=== PATIENT | male | born 1960 ===

== ENCOUNTER 2017-07-04 09:08 | Inpatient (IN) | payer OTHER ==
[2017-07-04 09:30] VITALS: BMI 26.6
--- NOTE | 2017-07-04 09:50 | ED PDOC ---
HPI: Abdomen Time Seen by Provider: 07/04/17 09:30 Chief Complaint (Nursing): Abdominal Pain History Per: Patient (Right sided abd pain intermittent x 1 month assoc with diarrhea. denies fever, vomiting or bloody stool.) Onset/Duration Of Symptoms: Other (1 month) Current Symptoms Are (Timing): Intermittent Episodes Severity: Mild Pain Scale Rating Of: 2 Location Of Pain/Discomfort: RUQ, RLQ Quality Of Discomfort: Unable To Describe Associated Symptoms: Diarrhea. denies: Fever, Nausea, Vomiting Past Medical History Vital Signs: Last Vital Signs Temp 97 F L 07/04/17 09:33 Pulse 65 07/04/17 11:59 Resp 19 07/04/17 11:59 BP 145/80 07/04/17 11:59 Pulse Ox 98 07/04/17 12:53 - Medical History PMH: No Chronic Diseases - Family History Family History: States: Unknown Family Hx - Allergies Allergies/Adverse Reactions: Allergies Allergy/AdvReac Type Severity Reaction Status Date / Time Penicillins Allergy RASH Verified 07/04/17 09:32 Review of Systems ROS Statement: Except As Marked, All Systems Reviewed And Found Negative Constitutional: Negative for: Fever Gastrointestinal: Positive for: Abdominal Pain, Diarrhea. Negative for: Nausea , Vomiting, Melena, Hematochezia, Hematemesis Physical Exam - Reviewed Nursing Documentation Reviewed: Yes Vital Signs Reviewed: Yes - Physical Exam Appears: Positive for: Non-toxic, No Acute Distress Head Exam: Positive for: ATRAUMATIC, NORMAL INSPECTION, NORMOCEPHALIC Skin: Positive for: Normal Color, Warm, DRY Eye Exam: Positive for: EOMI, Normal appearance, PERRL ENT: Positive for: Normal ENT Inspection Neck: Positive for: Normal, Painless ROM Cardiovascular/Chest: Positive for: Regular Rate, Rhythm Respiratory: Positive for: CNT, Normal Breath Sounds Gastrointestinal/Abdominal: Positive for: Bowel Sounds, Soft, Tenderness (RUQ and RLQ) Back: Positive for: Normal Inspection Extremity: Positive for: Normal ROM Neurologic/Psych: Positive for: Alert, Oriented - Laboratory Results Result Diagrams: 07/04/17 09:55 07/04/17 09:55 - ECG O2 Sat by Pulse Oximetry: 98 ED OBSERVATION Date of observation admission: 07/04/17 Time of observation admission: 10:30 - Observation admission statement Patient is being placed in observation because:: abd pain Disposition - Clinical Impression Clinical Impression: Abdominal pain - Patient ED Disposition Is Patient to be Admitted: Yes - Disposition Disposition Time: 14:38 Condition: FAIR - Pt Status Changed To: Hospital Disposition Of: Observation - POA Present On Arrival: None
[2017-07-04 10:07] LABS: BASO # 0.1 K/uL (0.0-0.2); BASO % 1.4 % (0.0-2.0); EOS # 0.3 K/uL (0.0-0.7); EOS % 6.6 % (0.0-4.0); HEMATOCRIT 38.1 % (35.0-51.0); LYMPH # 0.9 K/uL (1.0-4.3); LYMPH % 17.6 % (20.0-40.0); MEAN CELL VOLUME 90.3 fl (80.0-94.0); MEAN CORPUSCULAR HEMOGLOBIN 29.6 pg (27.0-31.0); MEAN CORPUSCULAR HGB CONC 32.7 g/dL (33.0-37.0); MEAN PLATELET VOLUME 7.7 fl (7.2-11.7); MONO # 0.4 K/uL (0.0-0.8); MONO % 7.2 % (0.0-10.0); NEUT # 3.4 K/uL (1.8-7.0); NEUT % 67.2 % (50.0-75.0); RED CELL DISTRIBUTION WIDTH 14.1 % (11.5-14.5); WHITE BLOOD COUNT 5.1 K/uL (4.8-10.8)
[2017-07-04 10:15] LABS: ALB/GLOB RATIO 1.1 (1.0-2.1); ALKALINE PHOSPHATASE 81 U/L (38-126); ALT/SGPT 16 U/L (21-72); AST/SGOT 32 U/L (17-59); BILIRUBIN,TOTAL 0.8 mg/dl (0.2-1.3); BLOOD UREA NITROGEN 11 mg/dl (9-20); CALCIUM 8.7 mg/dL (8.4-10.2); CARBON DIOXIDE 22 mmol/L (22-30); CHLORIDE 105 mmol/L (98-107); GFR AFRICAN-AMERICAN > 60; GLUCOSE,RANDOM 122 mg/dL (75-110); SODIUM 138 mmol/l (132-148); TOTAL PROTEIN 7.7 G/DL (6.3-8.2)
[2017-07-04 10:16] LABS: POTASSIUM 4.4 MMOL/L (3.6-5.0)
[2017-07-04] MEDS ORDERED: Iohexol 300 100 ML IJ ONE (11:00)
[2017-07-04] MEDS ORDERED: Sodium Chloride 0.9% 50 ML IV ONE (11:01)
--- NOTE | 2017-07-04 11:41 | CT ---
PROCEDURE: CT Abdomen and Pelvis with contrast HISTORY: Lower abd pain right side COMPARISON: None. TECHNIQUE: Contrast dose: Omnipaque 300, 95 cc Radiation dose: Total exam DLP = 934 mGy-cm. This CT exam was performed using one or more of the following dose reduction techniques: Automated exposure control, adjustment of the mA and/or kV according to patient size, and/or use of iterative reconstruction technique. FINDINGS: LOWER THORAX: Unremarkable. LIVER: Unremarkable. No gross lesion or ductal dilatation. GALLBLADDER AND BILE DUCTS: Unremarkable. PANCREAS: Unremarkable. No gross lesion or ductal dilatation. SPLEEN: Unremarkable. ADRENALS: Unremarkable. No mass. KIDNEYS AND URETERS: A 1 cm cyst is seen exophytic off the midpole left kidney laterally with a tiny lucency seen related to the mid to lower pole right kidney anteriorly, too small to characterize. No obstructive uropathy identified bilaterally. No definite radiodense urolithiasis. VASCULATURE: Unremarkable. No aortic aneurysm. BOWEL: No bowel obstruction appreciated and variable but predominate moderate fecal loading obscures the colon. Further, lack of oral contrast limits evaluation of bowel. APPENDIX: The appendix appears somewhat prominent measuring 8.7 cm with questionable fluid sequestered at the distal portion. However, there is no periappendiceal reaction. There is borderline mural thickening. The pattern suspicious but not definitive for appendicitis. Further clinical correlation is advised. PERITONEUM: Unremarkable. No free fluid. No free air. LYMPH NODES: Unremarkable. No enlarged lymph nodes. BLADDER: Unremarkable. REPRODUCTIVE: Enlarged prostate gland. BONES: No acute fracture. OTHER FINDINGS: None. IMPRESSION: Findings suspicious but not definitive for appendicitis. Please see discussion above. Remainder the examination is otherwise nonacute Left renal cyst. Tiny lucency in the right kidney too small to characterize. Enlarged prostate gland.
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
[2017-07-04] MEDS: Sodium Chloride 0.9% 1,000 ML IV SCH (16:22)
[2017-07-04] MEDS: metroNIDAZOLE 500mg/100ml NS 100 ML IVPB SCH (17:21)
[2017-07-04 17:22] LABS: RBC URINE 2 /hpf (0-3); URINE BACTERIA OCC (<OCC); URINE BILIRUBIN NEGATIVE (NEGATIVE); URINE BLOOD NEGATIVE (NEGATIVE); URINE COLOR STRAW (YELLOW); URINE GLUCOSE (UA) NEG (Normal); URINE KETONE NEGATIVE (NEGATIVE); URINE LEUKOCYTE ESTERASE NEG Leu/uL (Negative); URINE PROTEIN NEGATIVE (NEGATIVE); URINE UROBILINOGEN 0.2-1.0 mg/dL (0.2-1.0); WBC URINE < 1 /hpf (0-5)
[2017-07-04] MEDS: Ciprofloxacin 400mg/200ml D5W 400 MG/200 ML BAG IVPB SCH (21:21)
[2017-07-05] MEDS: metroNIDAZOLE 500mg/100ml NS 100 ML IVPB SCH ×2 (00:41→09:46)
[2017-07-05] MEDS: Sodium Chloride 0.9% 1,000 ML IV SCH ×2 (00:42→21:35)
[2017-07-05 07:39] LABS: BLOOD UREA NITROGEN 8 mg/dl (9-20); CALCIUM 8.7 mg/dL (8.4-10.2); CARBON DIOXIDE 30 mmol/L (22-30); CHLORIDE 102 mmol/L (98-107); GFR AFRICAN-AMERICAN > 60; GLUCOSE,RANDOM 105 mg/dL (75-110); POTASSIUM 3.9 MMOL/L (3.6-5.0); SODIUM 140 mmol/l (132-148)
[2017-07-05 07:44] LABS: BASO % 0.7 % (0.0-2.0); EOS # 0.3 K/uL (0.0-0.7); EOS % 4.9 % (0.0-4.0); MEAN CELL VOLUME 90.2 fl (80.0-94.0); MEAN CORPUSCULAR HEMOGLOBIN 29.9 pg (27.0-31.0); MEAN CORPUSCULAR HGB CONC 33.1 g/dL (33.0-37.0); MEAN PLATELET VOLUME 7.8 fl (7.2-11.7); MONO # 0.4 K/uL (0.0-0.8); MONO % 6.4 % (0.0-10.0); NEUT # 4.1 K/uL (1.8-7.0); NRBC % 0.1 % (0.0-0.0); RED CELL DISTRIBUTION WIDTH 14.3 % (11.5-14.5); WHITE BLOOD COUNT 5.8 K/uL (4.8-10.8)
[2017-07-05] MEDS: Ciprofloxacin 400mg/200ml D5W 400 MG/200 ML BAG IVPB SCH ×2 (09:50→20:48)
[2017-07-05] MEDS ORDERED: metroNIDAZOLE 500mg/100ml NS 100 ML IVPB SCH (10:15)
--- NOTE | 2017-07-05 10:44 | CP.PCM.PN ---
Subjective - Date & Time of Evaluation Date of Evaluation: 07/05/17 Time of Evaluation: 10:45 - Subjective Subjective: No fever Abd Pain sl better no nausea nor vomiting denies CP no SOB Pt has good functional capacity - low cardiac risk for the procedure. Objective - Vital Signs/Intake and Output Vital Signs (last 24 hours): Temp Pulse Resp BP Pulse Ox 97.8 F 81 20 142/77 98 07/05/17 08:32 07/05/17 08:32 07/05/17 08:32 07/05/17 08:32 07/05/17 08:32 - Medications Medications: Current Medications Sodium Chloride (Sodium Chloride 0.9%) 1,000 mls @ 100 mls/hr IV .Q10H ADRYAN Last Admin: 07/05/17 00:42 Dose: 100 mls/hr Ciprofloxacin (Cipro 400mg/200ml Dsw) 400 mg in 200 mls @ 200 mls/hr IVPB Q12 ADRYAN Last Admin: 07/05/17 09:50 Dose: 200 mls/hr Metronidazole (Flagyl 500mg/100ml Ns) 100 mls @ 100 mls/hr IVPB Q8 ADRYAN Morphine Sulfate (Morphine) 2 mg IVP Q4 PRN PRN Reason: Pain, moderate (4-7) - Labs Labs: 07/05/17 06:50 07/05/17 06:50 - Constitutional Appears: Non-toxic, No Acute Distress - Head Exam Head Exam: NORMAL INSPECTION, NORMOCEPHALIC - Eye Exam Eye Exam: EOMI, Normal appearance, PERRL Pupil Exam: NORMAL ACCOMODATION - ENT Exam ENT Exam: Mucous Membranes Moist, Normal External Ear Exam - Neck Exam Neck Exam: Full ROM. absent: Meningismus - Respiratory Exam Respiratory Exam: NORMAL BREATHING PATTERN. absent: Rales, Wheezes, Respiratory Distress - Cardiovascular Exam Cardiovascular Exam: REGULAR RHYTHM, +S1, +S2 - GI/Abdominal Exam GI & Abdominal Exam: Soft, Tenderness (hypogastric tenderness) - Back Exam Back Exam: Full ROM. absent: CVA tenderness (L), CVA tenderness (R) - Neurological Exam Neurological Exam: Alert, Awake, CN II-XII Intact, Oriented x3 Neuro motor strength exam: Left Upper Extremity: 5, Right Upper Extremity: 5, Left Lower Extremity: 5, Right Lower Extremity: 5 - Psychiatric Exam Psychiatric exam: Normal Affect, Normal Mood - Skin Skin Exam: Dry, Intact, Normal Color, Warm Assessment and Plan (1) Acute appendicitis Status: Acute - Assessment and Plan (Free Text) Assessment: A/P : 1. Acute Appendicitis Pt came with lower abdominal pain. CT of abd: suspicious for Acute AP Surgery consulted - plan for Appendectomy keep pt NPO cont IV Cipro and Flagyl IVF hydration NPO Pt has low cardiac risk for the procedure - has greater than 4 mets cardiac function, works doing cleaning, exercises daily, no Cardiac nor resp history. EKG : Sinus monie 2. DVT Proph - SCD - Lovenox post op
[2017-07-05 12:27] LABS: PARTIAL THROMBOPLASTIN TIME 28.4 Seconds (25.6-37.1)
[2017-07-05] MEDS ORDERED: Lidocaine 1% Inj (20ml) ONE (14:50)
[2017-07-05] MEDS ORDERED: Bupivacaine 0.5% Inj(30mL) ONE (14:50)
[2017-07-05] MEDS ORDERED: Propofol 10 mg/ml Inj (20 ML) ONE (14:52)
[2017-07-05] MEDS ORDERED: Rocuronium 10 mg/ml (5 ml) ONE (14:52)
[2017-07-05] MEDS ORDERED: Neostigmine Methylsulfate 3mg/3ml Syringe IV ONE (14:52)
[2017-07-05] MEDS ORDERED: Succinylcholine 200 mg/10 ml Inj IV ONE (14:54)
[2017-07-05] MEDS ORDERED: Lactated Ringer's 1,000 ML IV ONE ×2 (15:10→16:23)
--- NOTE | 2017-07-05 16:39 | PCM.SURG1 ---
Surgeon's Initial Post Op Note - Surgeon's Notes Surgeon: Ronald Hardware Installer: Sebastian PGY3, Cassia PGY1 Type of Anesthesia: General Endo, Local Pre-Operative Diagnosis: appendicitis Operative Findings: 1. enlarged appendix. 2. Intra-peritoneal free body. 3. Gini-rectal inflammation Post-Operative Diagnosis: same Operation Performed: laparoscopic appendectomy Specimen/Specimens Removed: 1. appendix. 2. Intra-peritoneal free body Estimated Blood Loss: EBL {In ML}: 10 Blood Products Given: N/A Drains Used: No Drains Post-Op Condition: Good Date of Surgery/Procedure: 07/05/17 Time of Surgery/Procedure: 16:39
[2017-07-05] MEDS ORDERED: Oxycodone/Acetaminophen 5/325 mg Tab PO PRN (16:41)
[2017-07-05] MEDS: HYDROmorphone 0.5 mg/0.5 ml ISec IVP PRN ×2 (17:10→17:25)
--- NOTE | 2017-07-05 23:20 | CARD ---
APPROVED REPORT EKG Measurement Heart [id number] <Conclusion> Sinus bradycardia Otherwise normal ECG
[2017-07-06] MEDS: Lactated Ringer's 1,000 ML IV SCH ×2 (03:16→06:16)
[2017-07-06 05:29] VITALS: RESP 18; O2SAT 98
[2017-07-06 07:08] LABS: BASO % 0.4 % (0.0-2.0); EOS # 0.1 K/uL (0.0-0.7); EOS % 1.5 % (0.0-4.0); HEMATOCRIT 39.5 % (35.0-51.0); LYMPH % 15.6 % (20.0-40.0); MEAN CELL VOLUME 90.8 fl (80.0-94.0); MEAN CORPUSCULAR HEMOGLOBIN 29.4 pg (27.0-31.0); MEAN CORPUSCULAR HGB CONC 32.4 g/dL (33.0-37.0); MEAN PLATELET VOLUME 7.5 fl (7.2-11.7); MONO # 0.6 K/uL (0.0-0.8); MONO % 8.5 % (0.0-10.0); NEUT # 4.8 K/uL (1.8-7.0); RED CELL DISTRIBUTION WIDTH 14.6 % (11.5-14.5); WHITE BLOOD COUNT 6.5 K/uL (4.8-10.8)
[2017-07-06 07:18] LABS: BLOOD UREA NITROGEN 7 mg/dl (9-20); CALCIUM 8.7 mg/dL (8.4-10.2); CARBON DIOXIDE 29 mmol/L (22-30); CHLORIDE 101 mmol/L (98-107); GFR AFRICAN-AMERICAN > 60; GLUCOSE,RANDOM 102 mg/dL (75-110); POTASSIUM 3.8 MMOL/L (3.6-5.0); SODIUM 138 mmol/l (132-148)
--- NOTE | 2017-07-06 07:55 | CP.PCM.PN ---
<Morteza Antony - Last Filed: 07/06/17 12:48> Subjective - Date & Time of Evaluation Date of Evaluation: 07/06/17 Time of Evaluation: 07:30 - Subjective Subjective: General Surgery Progress Note for Dr. Cardenas Patient seen and examined at bedside this AM. No acute event overnight. He is POD #1 s/p laparoscopic appendectomy. Patient lying in bed comfortably. Patient still reports mild abdominal pain in lower abdomen. He is tolerating oral intake. No BM yet. Denies fever/chills, cp sob, palpitations, n/v/d. Objective - Vital Signs/Intake and Output Vital Signs (last 24 hours): Temp Pulse Resp BP Pulse Ox 98.3 F 71 18 114/60 98 07/06/17 05:28 07/06/17 05:28 07/06/17 05:28 07/06/17 05:28 07/06/17 05:28 - Medications Medications: Current Medications Acetaminophen (Tylenol 325mg Tab) 650 mg PO Q6 PRN PRN Reason: Fever >100.4 F Enoxaparin Sodium (Lovenox) 40 mg SC DAILY [facility] PRN Reason: Protocol Sodium Chloride (Sodium Chloride 0.9%) 1,000 mls @ 100 mls/hr IV .Q10H [facility] Last Admin: 07/05/17 21:35 Dose: Not Given Ciprofloxacin (Cipro 400mg/200ml Dsw) 400 mg in 200 mls @ 200 mls/hr IVPB Q12 [facility] Last Admin: 07/05/17 20:48 Dose: 200 mls/hr Lactated Ringer's (Lactated Ringer's) 1,000 mls @ 100 mls/hr IV .Q10H [facility] Last Admin: 07/06/17 06:16 Dose: 100 mls/hr Ketorolac Tromethamine (Toradol) 30 mg IVP Q6 PRN PRN Reason: Pain, moderate (4-7) Metronidazole (Flagyl) 500 mg PO Q8@0500,1300,2100 [facility] Last Admin: 07/06/17 06:00 Dose: 500 mg Morphine Sulfate (Morphine) 2 mg IVP Q4 PRN PRN Reason: Pain, moderate (4-7) Ondansetron HCl (Zofran Inj) 4 mg IVP Q4 PRN PRN Reason: Nausea/Vomiting Oxycodone/Acetaminophen (Percocet 5/325 Mg Tab) 1 tab PO Q4 PRN PRN Reason: Pain, severe (8-10) Stop: 07/08/17 16:42 - Labs Labs: 07/06/17 06:15 07/06/17 06:15 PT 12.3 Seconds (9.8-13.1) 07/05/17 12:12 INR 1.2 (0.9-1.2) 07/05/17 12:12 APTT 28.4 Seconds (25.6-37.1) 07/05/17 12:12 - Constitutional Appears: No Acute Distress - Head Exam Head Exam: ATRAUMATIC, NORMOCEPHALIC - Eye Exam Eye Exam: Normal appearance - ENT Exam ENT Exam: Mucous Membranes Moist - Neck Exam Neck Exam: Full ROM - Respiratory Exam Respiratory Exam: NORMAL BREATHING PATTERN - Cardiovascular Exam Cardiovascular Exam: REGULAR RHYTHM - GI/Abdominal Exam GI & Abdominal Exam: Soft, Tenderness (lower abdomen). absent: Distended, Firm , Guarding, Rigid, Rebound - Neurological Exam Neurological Exam: Alert, Awake, CN II-XII Intact, Oriented x3 - Psychiatric Exam Psychiatric exam: Normal Affect, Normal Mood - Skin Skin Exam: Dry, Intact, Normal Color, Warm Assessment and Plan - Assessment and Plan (Free Text) Plan: 56 M s/p laparoscopic appendectomy POD #1 -ABX -Anti-emetics/Analgesics -GI consult recommended -Patient will need follow up with GI for colonoscopy -Clear for discharge from surgical standpoint -Will DW Dr. Ronald Antony PGY1 <Wali Cardenas B - Last Filed: 07/06/17 19:42> Objective - Vital Signs/Intake and Output Vital Signs (last 24 hours): Temp Pulse Resp BP Pulse Ox 98.2 F 72 18 127/72 98 07/06/17 16:55 07/06/17 16:55 07/06/17 16:55 07/06/17 16:55 07/06/17 16:55 - Labs Labs: 07/06/17 06:15 07/06/17 06:15 PT 12.3 Seconds (9.8-13.1) 07/05/17 12:12 INR 1.2 (0.9-1.2) 07/05/17 12:12 APTT 28.4 Seconds (25.6-37.1) 07/05/17 12:12 Attending/Attestation - Attestation I have fully participated in the care of the patient.: Yes I have reviewed all pertinent clinical information, including history, physical exam and plan: Yes Notes (Text): 07/06/17 19:42 Pt can be DC home f/u as out pt GI f/u for colonoscopy
[2017-07-06] MEDS: Ciprofloxacin 400mg/200ml D5W 400 MG/200 ML BAG IVPB SCH (08:47)
[2017-07-06] MEDS ORDERED: Enoxaparin 40 mg Syringe SC SCH (09:00)
--- NOTE | 2017-07-06 09:24 | CP.PCM.DIS ---
Provider - Provider Date of Admission: 07/05/17 14:33 Attending physician: Spencer Carrillo MD Consults: Surgery-Dr Cardenas Time Spent in preparation of Discharge (in minutes): 25 Diagnosis - Discharge Diagnosis (1) Acute appendicitis Status: Acute (2) Perirectal inflammation Status: Acute (3) Diarrhea Status: Chronic Hospital Course - Lab Results Lab Results: Most Recent Lab Values WBC 6.5 K/uL (4.8-10.8) 07/06/17 06:15 RBC 4.36 Mil/uL (4.40-5.90) L 07/06/17 06:15 Hgb 12.8 g/dL (12.0-18.0) 07/06/17 06:15 Hct 39.5 % (35.0-51.0) 07/06/17 06:15 MCV 90.8 fl (80.0-94.0) 07/06/17 06:15 MCH 29.4 pg (27.0-31.0) 07/06/17 06:15 MCHC 32.4 g/dL (33.0-37.0) L 07/06/17 06:15 RDW 14.6 % (11.5-14.5) H 07/06/17 06:15 Plt Count 265 K/uL (130-400) 07/06/17 06:15 MPV 7.5 fl (7.2-11.7) 07/06/17 06:15 Neut % (Auto) 74.0 % (50.0-75.0) 07/06/17 06:15 Lymph % (Auto) 15.6 % (20.0-40.0) L 07/06/17 06:15 Campbell % (Auto) 8.5 % (0.0-10.0) 07/06/17 06:15 Eos % (Auto) 1.5 % (0.0-4.0) 07/06/17 06:15 Baso % (Auto) 0.4 % (0.0-2.0) 07/06/17 06:15 Neut # 4.8 K/uL (1.8-7.0) 07/06/17 06:15 Lymph # 1.0 K/uL (1.0-4.3) 07/06/17 06:15 Campbell # 0.6 K/uL (0.0-0.8) 07/06/17 06:15 Eos # 0.1 K/uL (0.0-0.7) 07/06/17 06:15 Baso # 0.0 K/uL (0.0-0.2) 07/06/17 06:15 PT 12.3 Seconds (9.8-13.1) 07/05/17 12:12 INR 1.2 (0.9-1.2) 07/05/17 12:12 APTT 28.4 Seconds (25.6-37.1) 07/05/17 12:12 Sodium 138 mmol/l (132-148) 07/06/17 06:15 Potassium 3.8 MMOL/L (3.6-5.0) 07/06/17 06:15 Chloride 101 mmol/L (98-107) 07/06/17 06:15 Carbon Dioxide 29 mmol/L (22-30) 07/06/17 06:15 Anion Gap 11 (10-20) 07/06/17 06:15 BUN 7 mg/dl (9-20) L 07/06/17 06:15 Creatinine 0.8 mg/dL (0.8-1.5) 07/06/17 06:15 Est GFR ( Amer) > 60 07/06/17 06:15 Est GFR (Non-Af Amer) > 60 07/06/17 06:15 Random Glucose 102 mg/dL (75-110) 07/06/17 06:15 Calcium 8.7 mg/dL (8.4-10.2) 07/06/17 06:15 Total Bilirubin 0.8 mg/dl (0.2-1.3) 07/04/17 09:55 AST 32 U/L (17-59) 07/04/17 09:55 ALT 16 U/L (21-72) L 07/04/17 09:55 Alkaline Phosphatase 81 U/L (38-126) 07/04/17 09:55 Total Protein 7.7 G/DL (6.3-8.2) 07/04/17 09:55 Albumin 4.0 g/dL (3.5-5.0) 07/04/17 09:55 Globulin 3.7 gm/dL (2.2-3.9) 07/04/17 09:55 Albumin/Globulin Ratio 1.1 (1.0-2.1) 07/04/17 09:55 Urine Color Straw (YELLOW) 07/04/17 17:08 Urine Clarity Clear (Clear) 07/04/17 17:08 Urine pH 7.0 (5.0-8.0) 07/04/17 17:08 Ur Specific [place] 1.025 (1.003-1.030) 07/04/17 17:08 Urine Protein Negative mg/dL (NEGATIVE) 07/04/17 17:08 Urine Glucose (UA) Neg mg/dL (Normal) 07/04/17 17:08 Urine Ketones Negative mg/dL (NEGATIVE) 07/04/17 17:08 Urine Blood Negative (NEGATIVE) 07/04/17 17:08 Urine Nitrate Negative (NEGATIVE) 07/04/17 17:08 Urine Bilirubin Negative (NEGATIVE) 07/04/17 17:08 Urine Urobilinogen 0.2-1.0 mg/dL (0.2-1.0) 07/04/17 17:08 Ur Leukocyte Esterase Neg Dina/uL (Negative) 07/04/17 17:08 Urine RBC (Auto) 2 /hpf (0-3) 07/04/17 17:08 Urine Microscopic WBC < 1 /hpf (0-5) 07/04/17 17:08 Urine Bacteria Occ (<OCC) H 07/04/17 17:08 - Hospital Course Hospital Course: 56 y/o gent came in bec of abdominal pain. He complains of abd pain and diarrhea x 1 month . Diarrhea resolved however lower abd pain worsened . CT of abd : suspicious for Appendicitis. Suirgery consulted- pt then underwent Lap AP. Noted Appendicitis and some perirectal inflammation. GI consulted- plan for outp[t Colonoscopy. Tolerated diet, + flatus. 1. Acute Appendicitis s/p Lap Appendectomy Pt came with lower abdominal pain. CT of abd: suspicious for Acute AP Surgery consulted - Lap Appendectomy cont IV Cipro and Flagyl IVF hydration 2. Perirectal Inflammation seen intra-op pt has had diarrhea on and off x 1 month GI consulted- outpt Colonoscopy 3. DVT Proph - SCD - Lovenox Discharge Exam - Head Exam Head Exam: ATRAUMATIC, NORMAL INSPECTION, NORMOCEPHALIC - Eye Exam Eye Exam: EOMI, Normal appearance, PERRL Pupil Exam: NORMAL ACCOMODATION - ENT Exam ENT Exam: Mucous Membranes Moist, Normal External Ear Exam - Neck Exam Neck exam: Full Rom - Respiratory Exam Respiratory Exam: NORMAL BREATHING PATTERN. absent: Respiratory Distress - Cardiovascular Exam Cardiovascular Exam: REGULAR RHYTHM, +S1, +S2 - GI/Abdominal Exam GI & Abdominal Exam: Normal Bowel Sounds, Soft, Tenderness (minimal diffuse tenderness) - Extremities Exam Extremities exam: full ROM, normal capillary refill, pedal pulses present Additional comments: no calf tenderness - Back Exam Back exam: FULL ROM. absent: CVA tenderness (L), CVA tenderness (R) - Neurological Exam Neurological exam: Alert, CN II-XII Intact, Normal Gait, Oriented x3, Reflexes Normal - Psychiatric Exam Psychiatric exam: Normal Affect, Normal Mood - Skin Skin Exam: Dry, Normal Color, Warm Discharge Plan - Discharge Medications Prescriptions: Ciprofloxacin [Cipro] 500 mg PO BID #10 tab Docusate Sodium [Colace] 100 mg PO BID #30 capsule metroNIDAZOLE [Flagyl] 500 mg PO Q8@0500,1300,2100 #15 tab oxyCODONE/Acetaminophen [Percocet 5/325 mg Tab] 1 tab PO Q8 PRN #15 tab PRN Reason: Pain, Severe (8-10) - Follow Up Plan Condition: GOOD Disposition: HOME/ ROUTINE Instructions: Laparoscopic Appendectomy (DC) Additional Instructions: You may remove dressings tomorrow and you may shower. No soaking in bath tub or swimming pool. Make an appt to see Dr. Cardenas in office in 1 week for post-op visit. Make an appt. with GI Dr. Paniagua to discuss scheduling colonoscopy within the next few weeks. ff up FP clinic in 1 wk puede quitar bendaje y banarse manana. no submeter en banera or picina. josé miguel anu con el Dr. Cardenas para verlo en 1 semana y tambien josé miguel anu con gastroenterologa para colonoscopia dentro de unas semanas. Referrals: Siva DEMARCO,MD Magalys [Medical Doctor] - Wali Cardenas MD [Staff Provider] - [facility] [Outside]
[2017-07-06] MEDS ORDERED: Chlorhexidine Gluconate 1 APPL/PKT TP ONE (12:41)
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
[2017-07-06 16:56] VITALS: BP 127/72; PULSE 72; TEMP 98.2
--- NOTE | 2017-07-07 02:57 | OP ---
PROCEDURE DATE: 07/05/2017 PREOPERATIVE DIAGNOSIS: Acute appendicitis. POSTOPERATIVE DIAGNOSES: 1. Acute appendicitis. 2. Peritoneal loose body with perirectal pelvic inflammation. PROCEDURES DONE: 1. Laparoscopic appendectomy. 2. Laparoscopic peritoneal biopsy of loose body. 3. Laparoscopic lysis of adhesion. SURGEON: Wali Cardenas MD INSURANCE INSTRUCTOR: Umair Cortes, PGY-3, resident. TYPE OF ANESTHESIA: General endotracheal tube anesthesia. ESTIMATED BLOOD LOSS: Around 10 mL. DRAINS: None. PATHOLOGY: 1. The appendix was sent to the pathology. 2. Peritoneal loose body was sent to the pathology. COMPLICATIONS: None. INTRAOPERATIVE FINDINGS: The patient had acute appendicitis with dilated appendix, and the patient also had extensive congenital adhesion. The patient also had peritoneal loose body in the pelvis and there was perirectal pelvic inflammation. DESCRIPTION OF PROCEDURE: On intraoperative steps, this is a 56-year-old male who was diagnosed with acute appendicitis and the patient was consented for laparoscopic appendectomy, possible open, brought to the OR, placed on the operating table. After induction of the anesthesia, the abdomen was prepped and draped in the usual sterile fashion. The supraumbilical transverse incision was made after incising skin and subcutaneous tissue. The fascia was incised. Flaquito port was placed. Pneumo was created. 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 The mesoappendix was resected with the Harmonic scalpel. Base of the appendix was resected with the RAJ and appendix was taken in EndoCatch bag, taken out through the umbilical port site and now, the pelvis was explored and the patient was found to have peritoneal loose body and that was biopsied and the patient also had inflammation in the perirectal area in the pelvis and after proper hemostasis, all the instruments were taken out, all the ports were taken out under vision. Pneumo was deflated. The umbilical port site was closed in 2 layers and skin with the 4-0 Monocryl at all the port site and dry sterile dressing was applied. The patient tolerated the procedure well. Counts of the instrument was correct. There was no apparent complication. Wali Cardenas MD
== END 2017-07-06 17:15 | disposition home or self-care (01) | DRG 151 ==
LOC: H.ER 09:08 → H.EROBSV 12:52 → H.ERHOLD 15:00 → H.MEDSURG1 16:41 → OBSVTOIN 07-05 14:33
PROC: 0DNW4ZZ Release Peritoneum, Percutaneous Endoscopic Approach (ICD-10-PCS; 2017-07-05)
PROC: 0JB83ZX Excision of Abdomen Subcutaneous Tissue and Fascia, Percutaneous Approach, Diagnostic (ICD-10-PCS; 2017-07-05)
PROC: 0DTJ4ZZ Resection of Appendix, Percutaneous Endoscopic Approach (ICD-10-PCS; principal; 2017-07-05 15:00)
DX: K35.80 Unspecified acute appendicitis (principal); Q43.3 Congenital malformations of intestinal fixation; R63.4 Abnormal weight loss; R19.7 Diarrhea, unspecified; Z88.0 Allergy status to penicillin; Z68.26 Body mass index [BMI] 26.0-26.9, adult; K62.89 Other specified diseases of anus and rectum

== ENCOUNTER 2017-11-07 16:42 | Observation (INO) | payer SELFPAY ==
[2017-11-07 16:42] VITALS: BMI 26.6
[2017-11-07 16:54] VITALS: BP 136/93; PULSE 78; RESP 16; TEMP 98.2; O2SAT 100
[2017-11-07] MEDS ORDERED: Sodium Chloride 0.9% 1,000 ML IV STA (17:29)
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
[2017-11-07 17:57] LABS: BASO % 0.6 % (0.0-2.0); EOS # 0.2 K/uL (0.0-0.7); EOS % 2.7 % (0.0-4.0); HEMOGLOBIN 10.4 g/dL (12.0-18.0); LYMPH # 0.6 K/uL (1.0-4.3); LYMPH % 9.7 % (20.0-40.0); MEAN CELL VOLUME 87.2 fl (80.0-94.0); MEAN CORPUSCULAR HEMOGLOBIN 29.4 pg (27.0-31.0); MEAN CORPUSCULAR HGB CONC 33.7 g/dL (33.0-37.0); MONO # 0.4 K/uL (0.0-0.8); MONO % 7.7 % (0.0-10.0); NEUT # 4.6 K/uL (1.8-7.0); NEUT % 79.3 % (50.0-75.0); PLATELET COUNT 310 K/uL (130-400); RBC 3.56 Mil/uL (4.40-5.90); RED CELL DISTRIBUTION WIDTH 14.2 % (11.5-14.5); WHITE BLOOD COUNT 5.8 K/uL (4.8-10.8)
[2017-11-07 18:06] LABS: ALBUMIN 3.8 g/dL (3.5-5.0); ALT/SGPT 23 U/L (21-72); AST/SGOT 20 U/L (17-59); BLOOD UREA NITROGEN 11 mg/dl (9-20); CALCIUM 8.6 mg/dL (8.4-10.2); GFR AFRICAN-AMERICAN > 60; GFR NON-AFRICAN AMERICAN > 60
[2017-11-07 19:10] LABS: ANISOCYTOSIS SLIGHT; EOSINOPHIL 1 % (0-7); LYMPHOCYTE 8 % (20-50); MONOCYTE 9 % (0-10); NEUTROPHIL 82 % (42-75); PLATELET ESTIMATE NORMAL (NORMAL); POIKILOCYTOSIS SLIGHT; TOTAL CELLS COUNTED 100
== END 2017-11-07 19:00 | disposition home or self-care (01) ==
LOC: H.ER 16:42 → H.ERHOLD 18:12
PROVIDERS: ADMIT Family Medicine Geriatric Medicine; ATTEND Family Medicine Geriatric Medicine
DX: R10.9 Unspecified abdominal pain (principal); R19.7 Diarrhea, unspecified; Z90.49 Acquired absence of other specified parts of digestive tract; Z88.0 Allergy status to penicillin
CPT/HCPCS: 80053; 85025; 96360; 99284; G0378; J7040

== ENCOUNTER 2017-11-08 09:43 | Day surgery (SDC) | payer SELFPAY ==
[2017-11-08] MEDS ORDERED: Lactated Ringer's 1,000 ML IV ONE (10:57)
[2017-11-08 11:26] VITALS: TEMP 96.8; O2SAT 99
[2017-11-08] MEDS ORDERED: Propofol 10 mg/ml Inj (20 ML) ONE (11:45)
--- NOTE | 2017-11-08 12:14 | CP.SDSHP ---
Same Day Surgery H & P - History Proposed Procedure: EGD and Colonoscopy Pre-Op Diagnosis: weight loss, dyspepsia - Previous Medical/Surgical History Cardiac: Hypertension - Allergies Allergies: Allergies Penicillins Allergy (Verified 07/04/17 09:32) RASH - Current Medications Current Medications: as per chart - Physical Exam General Appearance: no acute distress,AAO x3 Vital Signs: Vital Signs 11/08/17 11:25 Temperature 96.8 F L Pulse Rate 68 Respiratory 16 Rate Blood Pressure 129/78 O2 Sat by Pulse 99 Oximetry Mental Status: Alert & Oriented x3 Neuro: WNL Heart: WNL Lungs: WNL GI: WNL - Impression Impression: weight loss, r/o malignancy, celiac Pt. Evaluated Today:Candidate for Anesthesia & Procedure: Yes - Date & Time Date: 11/08/17 Time: 12:14 Short Stay Discharge - Short Stay Discharge Admitting Diagnosis/Reason for Visit: R63.4, Z12.11 Disposition: HOME/ ROUTINE
[2017-11-08 12:56] VITALS: BP 110/70; PULSE 73; RESP 14
== END 2017-11-08 13:45 | disposition home or self-care (01) ==
LOC: H.ENDO 09:43
PROVIDERS: ATTEND Internal Medicine Gastroenterology
DX: Z12.11 Encounter for screening for malignant neoplasm of colon (principal); R63.4 Abnormal weight loss; D49.0 Neoplasm of unspecified behavior of digestive system; I10 Essential (primary) hypertension; Z88.0 Allergy status to penicillin; K31.9 Disease of stomach and duodenum, unspecified; K44.9 Diaphragmatic hernia without obstruction or gangrene; R19.8 Other specified symptoms and signs involving the digestive system and abdomen
CPT/HCPCS: 43239; 45330; 88305; J2704; J7120

== ENCOUNTER 2017-11-22 08:20 | Day surgery (SDC) | payer SELFPAY ==
[2017-11-22 09:23] VITALS: O2SAT 100
[2017-11-22] MEDS ORDERED: Propofol 10 mg/ml Inj (20 ML) ONE (10:46)
[2017-11-22] MEDS ORDERED: Lidocaine 2% MPF (5 ml) Inj ONE (10:47)
[2017-11-22] MEDS ORDERED: Lactated Ringer's 1,000 ML IV ONE (10:48)
[2017-11-22 12:10] VITALS: BP 115/72; PULSE 64; RESP 18; TEMP 96.8
== END 2017-11-22 13:39 | disposition home or self-care (01) ==
LOC: H.ENDO 08:20
PROVIDERS: ATTEND Internal Medicine Gastroenterology
DX: Z12.11 Encounter for screening for malignant neoplasm of colon (principal); K64.8 Other hemorrhoids; D49.0 Neoplasm of unspecified behavior of digestive system; K62.89 Other specified diseases of anus and rectum
CPT/HCPCS: 45380; 88305; J2704; J7120